=== PATIENT | male | born 1945 | race Caucasian/White ===

== ENCOUNTER 2018-12-08 09:26 | Outpatient (CLI) | payer MEDICARE, BC ==
--- NOTE | 2018-12-08 09:50 | RAD ---
SINGLE VIEW OF THE PELVIS: Comparison: None. History: Low back pain. FINDINGS: Single view of the pelvis shows no evidence of acute fracture or dislocation. Moderate degenerative c hanges are seen in both hips. Moderate degenerative changes are seen in the lumbar spine. IMPRESSION: Degenerative changes in the spine and hips without acute osseous abnormality. POS: [facility]
--- NOTE | 2018-12-08 10:38 | RAD ---
LUMBAR SPINE RADIOGRAPHS TWO VIEWS: 12/08/2018 PROVIDED CLINICAL HISTORY: Low back pain. COMPARISON: None. FINDINGS: Five [id number] lumbar type vertebral bodies are present. Sagittal lumbar alignment appears nor mal. Left convexity curvature of the mid to lower lumbar spine. Disk space narrowing and endplate d egenerative change seen at multiple levels, most notably at L3-L4 and at L4-L5. Vertebral body heigh ts appear preserved. Multilevel facet arthritis. Vascular calcification. IMPRESSION: Advanced multilevel lumbar disk and facet degenerative change. POS: [facility]
== END 2018-12-08 09:27 | disposition home or self-care (01) ==
LOC: BICRAD 09:26
PROVIDERS: ATTEND Family Medicine
DX: M54.5 Low back pain (principal); M47.816 Spondylosis without myelopathy or radiculopathy, lumbar region; M16.0 Bilateral primary osteoarthritis of hip
CPT/HCPCS: 72100; 72170